=== PATIENT | female | born 1985 | race Caucasian/White ===

== ENCOUNTER 2016-12-07 11:47 | Emergency (ER) | payer MEDICAID ==
[2016-12-07 11:57] VITALS: BP 179/82; PULSE 51; TEMP 98.4; BMI 44.4
--- NOTE | 2016-12-07 12:10 | EDPRACDOC ---
- General Information Chief Complaint: Medication Refill Stated Complaint: MED REFILL Time Seen by Provider: 12/07/16 12:08 Information Source: Patient Mode Of Arrival: Car Home Medications: Home Medications Carbamazepine [Tegretol] 600 mg PO QHS 01/15/15 Divalproex Sodium [Depakote] 1,500 mg PO QHS 01/15/15 Alprazolam [Xanax] 1 mg PO TID 11/20/15 Alprazolam [Xanax] 1 mg PO Q8H PRN #12 tab 12/07/16 Allergies/Adverse Reactions: Allergies Allergy/AdvReac Type Severity Reaction Status Date / Time NSAIDS (Non-Steroidal Allergy Severe interactions Verified 12/07/16 11:59 Anti-Inflamma with other meds calcium polycarbophil Allergy Unknown Nausea/Vomi Verified 12/07/16 11:59 [From Perdiem] ting ciprofloxacin [From Cipro] Allergy Unknown Nausea/Vomi Verified 12/07/16 11:59 ting ciprofloxacin HCl Allergy Unknown Nausea/Vomi Verified 12/07/16 11:59 [From Cipro] ting metronidazole [From Flagyl] Allergy Unknown Unknown/See Verified 12/07/16 11:59 Comments Metronidazole HCl Allergy Unknown Unknown/See Verified 12/07/16 11:59 [From Flagyl] Comments Penicillins Allergy Unknown Nausea/Vomi Verified 12/07/16 11:59 ting psyllium seed [From Perdiem] Allergy Unknown Nausea/Vomi Verified 12/07/16 11:59 ting senna [From Perdiem] Allergy Unknown Nausea/Vomi Verified 12/07/16 11:59 ting sulfamethoxazole Allergy Unknown Nausea/Vomi Verified 12/07/16 11:59 [From Bactrim] ting tramadol HCl [From Ultram] Allergy Unknown Nausea/Vomi Verified 12/07/16 11:59 ting trimethoprim [From Bactrim] Allergy Unknown Nausea/Vomi Verified 12/07/16 11:59 ting - History of Present Illness HPI: PT STATES WENT TO PSYCH APPT TODAY DOCTOR HAD EMERGENCY WAS UNABLE TO BE SEEN AND IS NOW OUT OF [facility] FOR ANXIETY AND SEIZURES. Context: Reports: Ran out of Medication Medication for: Reports: Psychiatric Pain: Reports: None ED Past Medical History - History Reviewed Yes Nurses notes reviewed and agree except as marked Travel Outside of [place] in the Last 3 Months?: No - Patient Medical History Neurological History: Reports: Seizures Cardiac History: Reports: Hypertension Respiratory History: Reports: Asthma, COPD GI/ History: Reports: Gastroesophageal Reflux Psychological History: Reports: Anxiety. Denies: Depression - Social Medical History Smoking Status: Heavy tobacco smoker (5 or more cigarettes/day or daily pipe/ cigar) ETOH: None Substance Abuse: None Lives With: Spouse Lives In: Home EDM Review of Systems - Review of Systems ROS Negative Except as Marked: Yes All systems reviewed and were negative except as marked Constitutional: No Symptoms Reported. negative: Fever, Chills, Weakness, Fatigue, Loss of Appetite Eyes: No Symptoms Reported. negative: Redness, Blurred Vision, Double Vision, Discharge, Pain, Light Sensitive, Photophobia Ears: No Symptoms Reported. negative: Pain, Hearing Loss, Drainage, Ear Pulling Throat: No Symptoms Reported. negative: Pain, Swelling Nose: No Symptoms Reported. negative: Congestion, Bleeding, Discharge, Injection, Swelling, Deformity, Ecchymosis, Tender, Abrasion, Laceration Mouth: No Symptoms Reported. negative: Pain, Drooling Respiratory: No Symptoms Reported. negative: Cough, Brassy Cough, Barky Cough, Shortness of Breath, Wheezing, Hemoptysis Cardiovascular: No Symptoms Reported. negative: Chest Pain, Palpitations, Syncope, Edema, Orthopnea, PND, Skin Mottling, Cyanosis Gastrointestinal: No Symptoms Reported. negative: Pain, Constipation, Nausea, Vomiting, Diarrhea, Melena, Formula Intolerance Genitourinary: No Symptoms Reported. negative: Dysuria, Hematuria, Frequency, Discharge, Bleeding, Testicular Pain, Neurological: No Symptoms Reported. negative: Headache, Dizziness, Seizure, Numbness, Weakness, Speech Difficulty, Gait Difficulty Musculoskeletal: No Symptoms Reported. negative: Neck, Chestwall, Ribs, Back, Shoulder, Arm, Elbow, Forearm, Wrist, Hand, Pelvis, Hip, Femur, Knee, Leg, Ankle , Foot Integumentary: No Symptoms Reported. negative: Itching, Rash, Bruising, Wound Allergic/Immunologic: No Symptoms Reported. negative: Hives, Itching Hematologic: No Symptoms Reported. negative: Lymphadenopathy, Easy Bruising, Easy Bleeding Endocrine: No Symptoms Reported. negative: Weight Gain, Weight Loss Psychiatric: No Symptoms Reported. negative: Anxiety, Depression, Hallucinations, Insomnia, Suicidal - Physical Exam Constitutional: Alert (Awake), No apparent distress Oriented to: Time, Person, Place Last recorded Vital Signs: Last Vital Signs Temp 98.4 F 12/07/16 11:52 Pulse 51 L 12/07/16 11:52 Resp 16 12/07/16 11:52 BP 179/82 12/07/16 11:52 Pulse Ox 99 12/07/16 11:52 Oxygen Pulse Oxygen Saturation 99 O2 Device Room Air Oxygen Flow Rate Fraction of Inspired Oxygen ( FIO2) - HEENT Head: Normal ( normocephalic) Eye Exam: Normal (PERRL, EOMI, Sclera white) Oropharynx: Normal (Pharynx:Moist without exudate,Gums-no swelling) Tympanic Membrane: Normal ENT EAC: Normal TMJ: Normal Nose: No Symptoms Reported (septum midline) Neck: Normal (FROM, trachea at midline) - Respiratory/Cardiovascular Respiratory: Normal - CTA (BBS clear to auscultation without adventitious sounds ) Cardiovascular: Normal (RRR without murmur, gallop or rub) - GI Auscultation: Normal (NABS) Palpation: Normal (Soft,No rebound or guarding, non distended) Tenderness: Non tender Matthews's Sign: Negative - Musculoskeletal Back: Normal (Non-Tender) Extremities: Normal (Normal tone, Pulses 2+ No cyanosis or edema, FROM) - Integumentary Skin: Normal, Warm, Dry Lymphatics: Normal (no adenopathy) - Neurologic Memory Impaired: Normal Motor Function: Normal (Normal tone, Pulses 2+ No cyanosis or edema, FROM) Cranial Nerve: Normal (CN II-X11 intact sensation, strength 5/5) Cerebellar: Normal Mood Description: Normal Perception: Normal - Differential Diagnosis Medication Refill Decision Time to Discharge: 12:09 - Departure Disposition: Home Condition: Stable Final Diagnosis: Medication refill Instructions: Medication Refill Education/Counseling Given To: Patient Education/Counseling Given Regarding: Diagnosis, Treatment, Prognosis, Follow Up Referrals: Benny River MD [Primary Care Provider] - One Week Prescriptions: Alprazolam [Xanax] 1 mg PO Q8H PRN #12 tab PRN Reason: Anxiety Forms: Primary / Family Care Contact
== END 2016-12-07 12:15 | disposition home or self-care (01) ==
LOC: EDMC 11:47
DX: Z76.0 Encounter for issue of repeat prescription (principal); F41.9 Anxiety disorder, unspecified; R56.9 Unspecified convulsions
CPT/HCPCS: 99283

== ENCOUNTER 2016-12-11 15:34 | Emergency (ER) | payer MEDICAID ==
[2016-12-11 16:34] VITALS: TEMP 98.6; BMI 30.8
--- NOTE | 2016-12-11 16:36 | EDPRACDOC ---
- General Information Chief Complaint: Medication Refill Stated Complaint: MED REFILL Time Seen by Provider: 12/11/16 16:29 Home Medications: Home Medications Carbamazepine [Tegretol] 600 mg PO QHS 01/15/15 Divalproex Sodium [Depakote] 1,500 mg PO QHS 01/15/15 Alprazolam [Xanax] 1 mg PO TID 11/20/15 Alprazolam [Xanax] 1 mg PO Q8H PRN #12 tab 12/07/16 Oxycodone HCl/Acetaminophen [Percocet 10-325 mg Tablet] 1 each PO TID PRN #21 tablet 12/11/16 Allergies/Adverse Reactions: Allergies Allergy/AdvReac Type Severity Reaction Status Date / Time NSAIDS (Non-Steroidal Allergy Severe interactions Verified 12/07/16 11:59 Anti-Inflamma with other meds calcium polycarbophil Allergy Unknown Nausea/Vomi Verified 12/07/16 11:59 [From Perdiem] ting ciprofloxacin [From Cipro] Allergy Unknown Nausea/Vomi Verified 12/07/16 11:59 ting ciprofloxacin HCl Allergy Unknown Nausea/Vomi Verified 12/07/16 11:59 [From Cipro] ting metronidazole [From Flagyl] Allergy Unknown Unknown/See Verified 12/07/16 11:59 Comments Metronidazole HCl Allergy Unknown Unknown/See Verified 12/07/16 11:59 [From Flagyl] Comments Penicillins Allergy Unknown Nausea/Vomi Verified 12/07/16 11:59 ting psyllium seed [From Perdiem] Allergy Unknown Nausea/Vomi Verified 12/07/16 11:59 ting senna [From Perdiem] Allergy Unknown Nausea/Vomi Verified 12/07/16 11:59 ting sulfamethoxazole Allergy Unknown Nausea/Vomi Verified 12/07/16 11:59 [From Bactrim] ting tramadol HCl [From Ultram] Allergy Unknown Nausea/Vomi Verified 12/07/16 11:59 ting trimethoprim [From Bactrim] Allergy Unknown Nausea/Vomi Verified 12/07/16 11:59 ting - History of Present Illness Duration Without Medication: TODAY HPI: PT STATES THAT HER DOCTOR'S OFFICE SENT HER HERE FOR A "REFILL OF MY PERCOCET", STATES THAT SHE HAS APPT WITH HER DOCTOR TOMORROW BUT IT WAS CANCELLED DUE TO DOCTOR HAVING A IN THE FAMILY. PT STATES SHE TAKES PERCOCET 10/325 MG THREE TIMES DAILY. PT DENIES COMPLAINTS. Context: Reports: Ran out of Medication Medication for: Reports: Pain Pain: Reports: Mild ED Past Medical History - History Reviewed Yes Nurses notes reviewed and agree except as marked - Patient Medical History Neurological History: Reports: Seizures Cardiac History: Reports: Hypertension Respiratory History: Reports: Asthma, COPD GI/ History: Reports: Gastroesophageal Reflux Psychological History: Reports: Anxiety. Denies: Depression - Social Medical History Smoking Status: Heavy tobacco smoker (5 or more cigarettes/day or daily pipe/ cigar) ETOH: None Substance Abuse: None EDM Review of Systems - Review of Systems Constitutional: negative: Chills, Fever Eyes: negative: Blurred Vision, Double Vision Ears: negative: Drainage Throat: negative: Pain Nose: negative: Congestion, Discharge Respiratory: negative: Cough, Shortness of Breath, Wheezing Gastrointestinal: negative: Diarrhea, Nausea, Pain, Vomiting Neurological: negative: Dizziness, Headache - Physical Exam Constitutional: Alert (Awake), No apparent distress Oriented to: Time, Person, Place Last recorded Vital Signs: Last Vital Signs Temp 98.6 F 12/11/16 16:33 Pulse 55 L 12/11/16 16:33 Resp 18 12/11/16 16:33 BP 148/75 12/11/16 16:33 Pulse Ox 97 12/11/16 16:33 Oxygen Pulse Oxygen Saturation 97 O2 Device Room Air Oxygen Flow Rate Fraction of Inspired Oxygen ( FIO2) - HEENT Head: Normal ( normocephalic) Eye Exam: Normal (PERRL, EOMI, Sclera white) Oropharynx: Normal (Pharynx:Moist without exudate,Gums-no swelling) Tympanic Membrane: Normal ENT EAC: Normal TMJ: Normal Nose: No Symptoms Reported (septum midline) Neck: Normal (FROM, trachea at midline) - Respiratory/Cardiovascular Respiratory: Normal - CTA (BBS clear to auscultation without adventitious sounds ) Cardiovascular: Normal (RRR without murmur, gallop or rub) - Integumentary Skin: Normal, Warm, Dry Lymphatics: Normal (no adenopathy) - Neurologic Memory Impaired: Normal Motor Function: Normal (Normal tone, Pulses 2+ No cyanosis or edema, FROM) Cranial Nerve: Normal (CN II-X11 intact sensation, strength 5/5) Cerebellar: Normal Mood Description: Normal Perception: Normal - Differential Diagnosis Medication Refill - Additional Information CONTACTED PT'S PHARMACY LAST HAD MEDS FILLED ON NOV 28 #45 WITH INSTRUCTIONS FOR ONE EVERY 8 HOURS. I HAVE SPOKEN TO DR RIVER' OFFICE EARLIER IN THE DAY AND VERIFIED THAT THE PROVIDER DID HAVE A IN THE FAMILY AND WOULD BE OUT OF THE OFFICE THIS WEEK. Decision Time to Discharge: 16:39 - Departure Disposition: Home Condition: Stable Final Diagnosis: Medication refill Instructions: Medication Refill Education/Counseling Given To: Patient Education/Counseling Given Regarding: Diagnosis, Treatment, Prognosis, Follow Up Referrals: Benny River MD [Primary Care Provider] - One Week Prescriptions: Oxycodone HCl/Acetaminophen [Percocet 10-325 mg Tablet] 1 each PO TID PRN #21 tablet PRN Reason: Pain Forms: Primary / Family Care Contact Additional Instructions: YOU MUST FOLLOW UP WITH YOUR PRIMARY CARE DOCTOR FOR PAIN MANAGEMENT, THE ED WILL NOT BE REFILLING PRESCRIPTIONS FOR CHRONIC PAIN OR ANXIETY BEYOND TODAY'S DATE.
[2016-12-11 17:06] VITALS: BP 146/70; PULSE 58
== END 2016-12-11 17:02 | disposition home or self-care (01) ==
LOC: EDMC 15:34
DX: Z76.0 Encounter for issue of repeat prescription (principal); F41.9 Anxiety disorder, unspecified; I10 Essential (primary) hypertension
CPT/HCPCS: 99281